=== PATIENT | female | born 1960 | race Caucasian/White ===

== ENCOUNTER 2017-11-12 20:06 | Emergency (ER) | payer MEDICARE ==
[~2017-11-12] VITALS: Ht 167.6 cm; Wt 68.0 kg
--- NOTE | 2017-11-12 21:06 | NUR ---
Patient to ER bed 4 for evaluation. Side rails up. Report given to [facility].
--- NOTE | 2017-11-12 21:07 | NUR ---
Patient AOx4, brought by ambulance for complaint of upper abdominal pain 8/10 and diarrhea x3 weeks. Patient states no fever or chills. No other symptoms or complaints at this time.
--- NOTE | 2017-11-12 21:35 | NUR ---
ANGEL ANDERSON Kwaw at [facility] for medical evaluation.
[2017-11-12] MEDS ORDERED: NACL 0.9% 1,000 ML IV ONE (21:38)
[2017-11-12] MEDS ORDERED: KETOROLAC TROMETHAMINE 30 MG VIAL IVP ONE (21:45)
[2017-11-12] MEDS ORDERED: LEVOFLOXACIN 500 MG/D5W 100 ML IV ONE (21:45)
[2017-11-12 21:55] LABS: BILIRUBIN,URINE NEGATIVE (NEGATIVE); BLOOD, URINE NEGATIVE (NEGATIVE); CLARITY/URINE CLEAR (CLEAR); COLOR,URINE YELLOW (YELLOW); GLUCOSE,URINE 1+ (NEGATIVE); KETONES,URINE NEGATIVE (NEGATIVE); LEUKOCYTE ESTERASE ,URINE NEGATIVE (NEGATIVE); NITRITE, URINE NEGATIVE (NEGATIVE); PH,URINE 5.5 (5.0-8.0); PROTEIN URINE NEGATIVE (NEGATIVE); UROBILINOGEN,URINE 0.2 (0.2-1.0)
[2017-11-12 21:58] LABS: BASOPHILS % (AUTO) 0.4 % (0.0-2.0); EOSINOPHILS # (AUTO) 0.2 K/uL (0.0-0.4); EOSINOPHILS % (AUTO) 1.8 % (0.0-4.0); HEMATOCRIT 37.9 % (36-48); HEMOGLOBIN 12.3 g/dL (12.0-16.0); LYMPHOCYTES # (AUTO) 3.5 K/uL (1.0-5.5); MEAN CORPUSCULAR HEMOGLOBIN 27 pg (27-31); MEAN CORPUSCULAR HGB CONC 32 % (32-36); MEAN CORPUSCULAR VOLUME 84 fL (79.0-98.0); MONOCYTES # (AUTO) 0.5 K/uL (0.0-1.0); MONOCYTES % (AUTO) 4.7 % (1.7-9.3); NEUTROPHILS # (AUTO) 5.7 K/uL (1.8-7.7); NEUTROPHILS % (AUTO) 57.1 % (40.0-70.0); PLATELET COUNT (AUTO) 281 K/uL (130-430); RED BLOOD CELL COUNT(AUTO) 4.52 MIL/uL (4.2-6.2); RED CELL DISTRIBUTION WIDTH 15.6 % (9.0-15.0); WHITE BLOOD COUNT (AUTO) 9.9 K/uL (4.8-10.8)
--- NOTE | 2017-11-12 22:05 | NUR ---
# 22 gauge angiocath placed to LFA. Use of asceptic technique. Opsite placed over site. Blood return noted. Flushed with 10 cc of normal saline. No evidence of infiltration noted. Patient tolerated well.
[2017-11-12 22:11] LABS: CALCIUM 7.8 mg/dL (8.4-11.0); CREATININE 0.71 mg/dL (0.55-1.30); POTASSIUM 3.6 mmol/L (3.5-5.1)
[2017-11-12 22:17] LABS: ALBUMIN 2.8 g/dL (3.4-4.8); TOTAL BILIRUBIN 0.1 mg/dL (0.0-1.0)
--- NOTE | 2017-11-12 22:40 | NUR ---
IVF infusing with no s/s of infiltration at this time. Will cont to monitor.
--- NOTE | 2017-11-12 23:10 | NUR ---
No adverse reactions noted after medication administration. Will continue to monitor.
[2017-11-12] MEDS ORDERED: MORPHINE 4 MG/ML INJ. SYRINGE IVP ONE (23:30)
[2017-11-12] MEDS ORDERED: MORPHINE 2 MG/ML INJ. SYRINGE ONE (23:47)
--- NOTE | 2017-11-13 00:15 | NUR ---
Patient resting, no acute distress noted at this time.
[2017-11-13] MEDS ORDERED: HYDROmorphone 1 MG INJ. 1 MG/ML AMPUL IVP ONE (00:45)
[2017-11-13 01:28] VITALS: BP_SYST 132
--- NOTE | 2017-11-13 01:28 | NUR ---
Patient given written and verbal discharge instructions and verbalizes understanding. ER MD discussed with patient the results and treatment provided. Patient in stable condition. ID arm band removed. IV catheter removed intact and dressing applied, no active bleeding. Rx of Cipro given. Patient educated on pain management and to follow up with PMD. Pain Scale 0/10. Opportunity for questions provided and answered.
== END 2017-11-13 01:28 | disposition home or self-care (01) ==
LOC: SED 20:06
DX: K52.9 Noninfective gastroenteritis and colitis, unspecified (principal); E78.00 Pure hypercholesterolemia, unspecified; F41.9 Anxiety disorder, unspecified; J45.909 Unspecified asthma, uncomplicated; E11.9 Type 2 diabetes mellitus without complications; F32.9 Major depressive disorder, single episode, unspecified; M79.7 Fibromyalgia; Z90.49 Acquired absence of other specified parts of digestive tract
CPT/HCPCS: 36415; 80053; 81003; 83690; 85025; 96361; 96365; 96375; 99284; J1170; J1885; J1956; J2270; J7030

== ENCOUNTER 2018-07-25 08:07 | Emergency (ER) | payer MEDICARE ==
[~2018-07-25] VITALS: Ht 167.6 cm; Wt 74.8 kg
[2018-07-25 08:07] VITALS: BP_SYST 132
[2018-07-25] MEDS ORDERED: IBUPROFEN 800 MG TABLET PO ONE (08:30)
[2018-07-25] MEDS ORDERED: PROMETHAZINE HCL 50 MG/ML AMP IM ONE (08:30)
[2018-07-25] MEDS ORDERED: PROMETHAZINE HCL 25 MG/ML AMP ONE (08:42)
[2018-07-25 08:51] LABS: BASOPHILS % (AUTO) 0.4 % (0.0-2.0); EOSINOPHILS # (AUTO) 0.2 K/uL (0.0-0.4); EOSINOPHILS % (AUTO) 3.3 % (0.0-4.0); HEMATOCRIT 36.4 % (36-48); HEMOGLOBIN 12.1 g/dL (12.0-16.0); MEAN CORPUSCULAR HEMOGLOBIN 28 pg (27-31); MEAN CORPUSCULAR HGB CONC 33 % (32-36); MEAN CORPUSCULAR VOLUME 84 fL (79.0-98.0); MONOCYTES # (AUTO) 0.5 K/uL (0.0-1.0); MONOCYTES % (AUTO) 6.7 % (1.7-9.3); NEUTROPHILS # (AUTO) 4.6 K/uL (1.8-7.7); NEUTROPHILS % (AUTO) 61.6 % (40.0-70.0); PLATELET COUNT (AUTO) 382 K/uL (130-430); RED BLOOD CELL COUNT(AUTO) 4.32 MIL/uL (4.2-6.2); RED CELL DISTRIBUTION WIDTH 14.3 % (9.0-15.0); WHITE BLOOD COUNT (AUTO) 7.3 K/uL (4.8-10.8)
[2018-07-25 09:11] LABS: CREATININE 0.62 mg/dL (0.55-1.30); POTASSIUM 4.4 mmol/L (3.5-5.1)
[2018-07-25 09:15] LABS: PROTHROMBIN TIME 9.9 SECS (9.5-12.5)
[2018-07-25 09:16] LABS: ALBUMIN 3.8 g/dL (3.4-4.8); TOTAL BILIRUBIN 0.3 mg/dL (0.0-1.0)
[2018-07-25] MEDS ORDERED: PROMETHAZINE HCL 25 MG/ML AMP IM ONE (11:00)
== END 2018-07-25 10:12 | disposition home or self-care (01) ==
LOC: SED 08:07
DX: G43.909 Migraine, unspecified, not intractable, without status migrainosus (principal); R11.2 Nausea with vomiting, unspecified; J45.909 Unspecified asthma, uncomplicated; E11.9 Type 2 diabetes mellitus without complications; M79.7 Fibromyalgia; E78.00 Pure hypercholesterolemia, unspecified; F41.9 Anxiety disorder, unspecified; F32.9 Major depressive disorder, single episode, unspecified
CPT/HCPCS: 36415; 70450; 71045; 80053; 84484; 85025; 85610; 85730; 93005; 96372; 99285; J2550 ×2

== ENCOUNTER 2020-03-27 16:10 | Emergency (ER) | payer MEDICARE, OTHER ==
[~2020-03-27] VITALS: Ht 167.6 cm; Wt 75.3 kg
[2020-03-27 16:10] VITALS: BP_SYST 168
[2020-03-27] MEDS ORDERED: methylPREDNISolone SOD SUCC/PF 62.5 MG/ML VIAL IVP ONE (16:30)
[2020-03-27] MEDS ORDERED: MAGNESIUM SULFATE 1 GM in NS 50 ML IV ONE (16:30)
[2020-03-27] MEDS ORDERED: ALBUTEROL SULFATE 0.083% 2.5 MG/3 ML VIAL.NEB INH ONE (16:30)
[2020-03-27] MEDS ORDERED: IPRATROPIUM BROM 0.5 MG/2.5 ML VIAL.NEB (ATROVENT) INH ONE (16:30)
[2020-03-27] MEDS ORDERED: MAGNESIUM SULFATE 1 GM/2 ML VIAL ONE (16:49)
[2020-03-27 17:20] VITALS: BP_SYST 103
== END 2020-03-27 17:20 | disposition home or self-care (01) ==
LOC: SED 16:10
DX: J45.901 Unspecified asthma with (acute) exacerbation (principal); E11.9 Type 2 diabetes mellitus without complications; E78.00 Pure hypercholesterolemia, unspecified
CPT/HCPCS: 94640; 96365; 96375; 99284; J2930; J3475; J7613

== ENCOUNTER 2021-07-13 18:11 | Emergency (ER) | payer BC ==
[~2021-07-13] VITALS: Ht 167.6 cm; Wt 63.5 kg
[2021-07-13 18:30] VITALS: BP_SYST 107
--- NOTE | 2021-07-13 18:30 | NUR ---
PT ON AMBULANCE GURNEY AWAITING ER BED PLACEMENT.
--- NOTE | 2021-07-13 19:00 | NUR ---
PT TO [facility] FOR EVALUATION.
[2021-07-13 20:00] VITALS: BP_SYST 107
--- NOTE | 2021-07-13 20:08 | NUR ---
PT BIB BLS C/O UPPER ABDOMINAL PAIN S/P [facility] +WORSENING PAIN AFTER TURNING IN BED TOO QUICKLY. +NAUSEA
--- NOTE | 2021-07-13 20:28 | NUR ---
Dr Angela at bedside for MSE.
--- NOTE | 2021-07-13 20:50 | NUR ---
Pt left ER without paperwork or discharge information.
== END 2021-07-13 20:50 | disposition home or self-care (01) ==
LOC: SED 18:11
DX: S39.011A Strain of muscle, fascia and tendon of abdomen, initial encounter (principal); E11.9 Type 2 diabetes mellitus without complications; J45.909 Unspecified asthma, uncomplicated; X50.9XXA Other and unspecified overexertion or strenuous movements or postures, initial encounter; Y93.89 Activity, other specified; Y92.89 Other specified places as the place of occurrence of the external cause; Y99.8 Other external cause status
CPT/HCPCS: 99283